=== PATIENT | male | born 1970 | race African-American/Black ===

== ENCOUNTER 2021-10-29 08:07 | Outpatient (CLI) | payer BC, SELFPAY ==
--- NOTE | ~2021-10-29 | XR_ITS ---
EXAMINATION: CYSTOGRAM DATE: 10/29/2021 08:57 INDICATION: Voiding dysfunction post prostate surgery. TECHNIQUE: 2 initial target worker radiographs of the pelvis was performed. There was retrograde administrat ion of Omnipaque 350 mixed with saline contrast into patient's existing Ferguson catheter. 16 fluoroscop ic images of the pelvis were obtained. Fluoroscopy exposure time was 0.5 minutes. FINDINGS: Radiograph demonstrates a Ferguson catheter in the bladder and a left internal ureteral stent with loops formed in the bladder at the left kidney, in the upper pole collecting system is demonstrated on sub sequent images post contrast injection. Several phleboliths in the right hemipelvis. Contrast fills t he normal-appearing bladder. No evident bladder leak. There is reflux of a small amount of contrast i nto the left ureter alongside the ureteral stent. IMPRESSION: 1. Normal bladder with no evident bladder leak. 2. Left internal ureteral stent in expected position. Reviewed, dictated and finalized at location A. Y TELLER
== END 2021-10-29 08:08 | disposition home or self-care (01) ==
LOC: ANHIMG 08:12
PROVIDERS: Visit Provider Urology
DX: N39.8 Other specified disorders of urinary system (principal)
CPT/HCPCS: 51600; 74430; Q9967